=== PATIENT | male | born 1990 | race Caucasian/White ===

== ENCOUNTER 2022-08-02 11:17 | Emergency (ER) | payer OTHER ==
[~2022-08-02] VITALS: Ht 182.9 cm; Wt 81.8 kg
[2022-08-02 11:50] VITALS: BP 122/93
[2022-08-02] MEDS ORDERED: ACET-1080 PO (13:53)
[2022-08-02] MEDS ORDERED: LOPE7.5C PO (13:53)
[2022-08-02] MEDS ORDERED: LOPERAMIDE HCL 2 MG CAP/TAB PO ONE (14:00)
[2022-08-02] MEDS ORDERED: ACETAMINOPHEN 500 MG TAB PO ONE (14:00)
== END 2022-08-02 14:05 | disposition home or self-care (01) ==
LOC: ER 11:21
DX: R19.7 Diarrhea, unspecified (principal); Z79.899 Other long term (current) drug therapy